=== PATIENT | female | born 1985 | race African-American/Black ===

== ENCOUNTER 2018-08-18 12:17 | Emergency (ER) | payer MEDICAID ==
[~2018-08-18] VITALS: Ht 170.2 cm; Wt 74.8 kg
[~2018-08-18 12:17] MED LIST: ACYC1CAP23; ALBU0.084; [UNRECOGNIZED DRUG - CODE]
[2018-08-18] MEDS ORDERED: SODIUM CHLORIDE 0.9% 1,000 ML IV ONE (15:45)
[2018-08-18] MEDS ORDERED: HYDROmorphone HCL 2 MG/ML VL IV ONE (15:45)
[2018-08-18] MEDS ORDERED: PROMETHAZINE HCL 25 MG/ML 1ML IV ONE (15:45)
[2018-08-18] MEDS ORDERED: ETOMIDATE (2MG/ML) 20ML VIAL IV ONE (17:00)
[2018-08-18] MEDS ORDERED: MIDAZOLAM HCL 5 MG/ML-1ML VIAL IV ONE (17:00)
[2018-08-18 20:30] VITALS: BP 104/62
== END 2018-08-18 20:30 | disposition home or self-care (01) ==
LOC: ER 12:28
DX: S43.025A Posterior dislocation of left humerus, initial encounter (principal); V49.49XA Driver injured in collision with other motor vehicles in traffic accident, initial encounter; Y93.89 Activity, other specified; Y92.89 Other specified places as the place of occurrence of the external cause; Y99.8 Other external cause status
CPT/HCPCS: 23655; 70450; 72125; 73000; 73020; 73030; 73200; 96374; 96375; 99285; J1170; J2250; J2550; L0120

== ENCOUNTER 2019-04-09 06:27 | Emergency (ER) | payer MEDICAID ==
[~2019-04-09] VITALS: Ht 165.1 cm; Wt 70.3 kg
[2019-04-09 07:45] VITALS: BP 138/96
[2019-04-09] MEDS ORDERED: cefTRIAXone SOD 1,000 MG VL IM ONE (08:00)
[2019-04-09] MEDS ORDERED: IBUPROFEN 800 MG TAB PO ONE (08:30)
== END 2019-04-09 09:05 | disposition home or self-care (01) ==
LOC: ER 06:27
DX: K02.9 Dental caries, unspecified (principal); J45.909 Unspecified asthma, uncomplicated; Z79.899 Other long term (current) drug therapy
CPT/HCPCS: 70486; 96372; 99284; J0696